=== PATIENT | male | born 1940 | race Caucasian/White ===

== ENCOUNTER 2017-12-01 07:55 | Inpatient (IN) | payer MEDICARE, BC ==
[~2017-12-01] VITALS: Ht 137.2 cm; Wt 48.0 kg
[2017-12-01] VITALS (10 sets, daily range): BP systolic 114–146; BP diastolic 56–85
[~2017-12-01 07:55] MED LIST: ASPI-1265 PO; BACL10TA PO; CARB-87 PO; FURO40TA4 PO; GABA-532 PO; LOSA25TA96 PO; METO25TA6 PO; MULT-38 PO; OSC500T PO; ROPI1TAB4 PO; TEMA15CA PO
[2017-12-01 08:17] LABS: BASOPHILS % (AUTO) 0.1 % (0-1); EOSINOPHILS # (AUTO) 0.1 X10'3 (0-0.9); EOSINOPHILS % (AUTO) 0.9 % (0-6); HEMATOCRIT 33.3 % (42.0-52.0); HEMOGLOBIN 11.3 g/dl (14.0-17.9); LYMPHOCYTES # (AUTO) 0.3 X10'3 (1.1-4.8); LYMPHOCYTES % (AUTO) 4.5 % (21-51); MONOCYTES # (AUTO) 0.5 X10'3 (0-0.9); MONOCYTES % (AUTO) 7.1 % (2-12); NEUTROPHILS # (AUTO) 6.3 X10'3 (1.8-7.7); NEUTROPHILS % (AUTO) 87.4 % (42-75); PLATELET COUNT 213 X10'3 (140-440); RED BLOOD COUNT 3.54 X10'6 (4.70-6.10); RED CELL DISTRIBUTION WIDTH 13.2 % (11.5-14.5); WHITE BLOOD COUNT 7.2 X10'3 (4.5-11.0)
[2017-12-01 08:32] LABS: INR 1.1 INR; PARTIAL THROMBOPLASTIN TIME 31 SECONDS (22-32); PROTHROMBIN TIME 10.9 SECONDS (9.0-12.0)
[2017-12-01 08:56] LABS: CLARITY,URINE Clear (Clear); COLOR,URINE Yellow (Yellow); GLUCOSE, URINE Negative (Neg); KETONES,URINE 40 mg/dl (Neg); LEUKOCYTE ESTERASE ,URINE Negative (Neg); NITRITES, URINE Negative (Neg); OCCULT BLOOD,URINE Negative (Neg); PH,URINE 5.5 (4.8-8.0); PROTEIN,URINE Negative (Neg)
[2017-12-01 09:00] LABS: UA COLLECTION TYPE CLN CATCH MIDSTREAM
[2017-12-01 09:02] LABS: ALANINE AMINOTRANSFERASE 25 U/L (12-78); ALBUMIN 3.5 G/DL (3.4-5.0); ALBUMIN/GLOBULIN RATIO 0.9 (1.1-1.5); ALKALINE PHOSPHATASE 82 IU/L (46-116); ANION GAP 11 (8-16); ASPARTATE AMINO TRANSFERASE 39 U/L (10-37); BILIRUBIN,TOTAL 0.5 MG/DL (0.1-1.0); BLOOD UREA NITROGEN 24 MG/DL (7-18); CHLORIDE 94 MMOL/L (99-107); GLUCOSE 105 MG/DL (70-104); MAGNESIUM 1.9 MG/DL (1.5-2.4); SODIUM 135 MMOL/L (135-145); TOTAL CARBON DIOXIDE 30.2 MMOL/L (24-32); TOTAL PROTEIN 7.2 G/DL (6.4-8.2); eGFR > 90 ML/MIN
[2017-12-01] MEDS ORDERED: heparin 10,000 units/1 ML INJ IV PRN ×2 (09:30→09:40)
[2017-12-01] MEDS ORDERED: heparin 10,000 units/1 ML INJ IV ONE ×2 (09:30→09:40)
[2017-12-01] MEDS ORDERED: acetaminophen 650mg rectal suppository RC PRN (09:40)
[2017-12-01] MEDS ORDERED: bisacodyl 10mg suppository rectal RC PRN (09:40)
[2017-12-01] MEDS ORDERED: ondansetron/PF 4mg/2ml inj IV PRN ×2 (09:40→17:20)
[2017-12-01] MEDS: atorvastatin 20mg tablet PO SCH (10:35)
[2017-12-01] MEDS: gabapentin 300mg capsule PO SCH ×2 (13:00→20:31)
[2017-12-01] MEDS: ROPINIRole 1mg tablet PO SCH ×3 (13:00→21:00)
[2017-12-01] MEDS ORDERED: baclofen 10mg tablet PO SCH (13:00)
[2017-12-01] MEDS ORDERED: LIDOcaine 1%/PF (10mg/ml) 5ml vial ONE (15:34)
[2017-12-01] MEDS ORDERED: iohexol 350 MG/ML 50ML vial IV ONE ×2 (15:34→15:59)
[2017-12-01] MEDS ORDERED: heparin 1,000 UNITS/NS 500ml 500 ML ONE (15:34)
[2017-12-01] MEDS ORDERED: iohexol 350MG/ML 100ml bottle IV ONE (15:34)
[2017-12-01] MEDS ORDERED: diphenhydrAMINE 50 mg/ml inj ONE (15:41)
[2017-12-01] MEDS ORDERED: midazolam 2 mg/2 ml injection ONE (15:41)
[2017-12-01] MEDS ORDERED: sodium chloride 0.45% 1,000 ML IV SCH ×2 (16:40→17:25)
[2017-12-01] MEDS ORDERED: proCHLORperazine 10 MG/2 ml inj IV PRN ×2 (17:20→17:30)
[2017-12-01] MEDS ORDERED: HYDROcodone/acetaminophen 5mg/325mg tablet PO PRN (17:20)
[2017-12-01] MEDS ORDERED: OXAZEpam 15mg capsule PO PRN ×2 (17:20→17:30)
[2017-12-01] MEDS ORDERED: HYDROcodone/acetaminophen 10/325mg tab PO PRN (17:20)
[2017-12-01] MEDS: lactobacillus rhamnosus 10,000 MMU CELLS/CAPSULE PO SCH (17:30)
[2017-12-01] MEDS ORDERED: acetaminophen 325mg tablet PO PRN (17:30)
[2017-12-01] MEDS ORDERED: cyclobenzaprine 10mg tablet PO PRN (17:30)
[2017-12-01] MEDS ORDERED: magnesium hydroxide 30ml (MOM) UD suspension PO PRN (17:30)
[2017-12-01] MEDS ORDERED: morphine 5 MG/ML injection IV PRN ×2 (17:40)
[2017-12-01] MEDS: docusate sod 100mg capsule PO SCH (20:31)
[2017-12-01] MEDS: furosemide 40mg tablet PO SCH (20:32)
[2017-12-01] MEDS: metoprolol tartrate 12.5mg (1/2 tablet) PO SCH (20:32)
[2017-12-01] MEDS: enoxaparin 30mg/0.3ml syringe SUBCUT SCH (20:33)
[2017-12-01] MEDS: ciprofloxacin lact 400MG/200ML 200 ML IV SCH (20:33)
[2017-12-01] MEDS ORDERED: furosemide 40mg/4ml inj ONE (23:00)
[2017-12-01] MEDS ORDERED: furosemide 40mg/4ml inj IV ONE (23:00)
[2017-12-01 23:25] LABS: BASOPHILS % (AUTO) 0.3 % (0-1); EOSINOPHILS % (AUTO) 0 % (0-6); HEMATOCRIT 36.7 % (42.0-52.0); HEMOGLOBIN 12.5 g/dl (14.0-17.9); LYMPHOCYTES # (AUTO) 1.5 X10'3 (1.1-4.8); LYMPHOCYTES % (AUTO) 19.1 % (21-51); MEAN CORPUSCULAR HEMOGLOBIN 32.1 PG (27.0-31.0); MEAN CORPUSCULAR HGB CONC 34.1 % (33.0-36.5); MEAN CORPUSCULAR VOLUME 94.2 FL (78-98); MEAN PLATELET VOLUME 8.4 FL (7.4-10.4); MONOCYTES # (AUTO) 0.5 X10'3 (0-0.9); MONOCYTES % (AUTO) 6.7 % (2-12); NEUTROPHILS # (AUTO) 5.7 X10'3 (1.8-7.7); NEUTROPHILS % (AUTO) 73.9 % (42-75); PLATELET COUNT 237 X10'3 (140-440); RED CELL DISTRIBUTION WIDTH 13.2 % (11.5-14.5); WHITE BLOOD COUNT 7.8 X10'3 (4.5-11.0)
[2017-12-01] MEDS ORDERED: temazepam 15mg capsule PO PRN (23:45)
[2017-12-02] VITALS (10 sets, daily range): BP systolic 77–122; BP diastolic 43–62
[2017-12-02 00:58] LABS: CLARITY,URINE CLEAR (Clear); COLOR,URINE YELLOW (Yellow); GLUCOSE, URINE NEGATIVE (Neg); KETONES,URINE NEGATIVE (Neg); LEUKOCYTE ESTERASE ,URINE NEGATIVE (Neg); NITRITES, URINE NEGATIVE (Neg); OCCULT BLOOD,URINE TRACE-INTACT (Neg); PH,URINE 5.5 (4.8-8.0); PROTEIN,URINE NEGATIVE (Neg); UROBILINOGEN,URINE 0.2 E.U/dL (0.2-1.0)
[2017-12-02 01:04] LABS: UA COLLECTION TYPE VOIDED
[2017-12-02 01:10] LABS: BACTERIA,URINE NONE SEEN /HPF (Neg); MUCUS STRANDS NONE SEEN /LPF (Neg); RBC,URINE 0-2 /HPF (0-2); SQUAMOUS EPITHELIAL CELL,UR NONE SEEN /LPF (FEW); WBC,URINE 0-4 /HPF (0-4)
[2017-12-02 04:57] LABS: BASOPHILS % (AUTO) 0 % (0-1); EOSINOPHILS # (AUTO) 0.1 X10'3 (0-0.9); EOSINOPHILS % (AUTO) 1.1 % (0-6); HEMATOCRIT 30.9 % (42.0-52.0); HEMOGLOBIN 10.6 g/dl (14.0-17.9); LYMPHOCYTES # (AUTO) 0.7 X10'3 (1.1-4.8); MEAN CORPUSCULAR HEMOGLOBIN 32.1 PG (27.0-31.0); MEAN CORPUSCULAR HGB CONC 34.4 % (33.0-36.5); MEAN CORPUSCULAR VOLUME 93.4 FL (78-98); MEAN PLATELET VOLUME 8.2 FL (7.4-10.4); MONOCYTES # (AUTO) 0.5 X10'3 (0-0.9); MONOCYTES % (AUTO) 7.8 % (2-12); NEUTROPHILS # (AUTO) 5.2 X10'3 (1.8-7.7); NEUTROPHILS % (AUTO) 80.1 % (42-75); PLATELET COUNT 193 X10'3 (140-440); RED BLOOD COUNT 3.31 X10'6 (4.70-6.10); RED CELL DISTRIBUTION WIDTH 13.1 % (11.5-14.5); WHITE BLOOD COUNT 6.5 X10'3 (4.5-11.0)
[2017-12-02 05:13] LABS: ALANINE AMINOTRANSFERASE 71 U/L (12-78); ALBUMIN 2.9 G/DL (3.4-5.0); ALBUMIN/GLOBULIN RATIO 0.9 (1.1-1.5); ALKALINE PHOSPHATASE 72 IU/L (46-116); ANION GAP 8 (8-16); ASPARTATE AMINO TRANSFERASE 169 U/L (10-37); BILIRUBIN,TOTAL 0.3 MG/DL (0.1-1.0); BLOOD UREA NITROGEN 27 MG/DL (7-18); CALCIUM 8.2 MG/DL (8.5-10.1); CHLORIDE 95 MMOL/L (99-107); CHOL/HDL RATIO 1.9 (0.00-4.99); CHOLESTEROL 125 MG/DL (0-200); GLUCOSE 102 MG/DL (70-104); HDL CHOLESTEROL 66 MG/DL (35-60); LDL CHOLESTEROL 56 MG/DL (50-100); POTASSIUM 4.5 MMOL/L (3.5-5.1); SODIUM 133 MMOL/L (135-145); TOTAL CARBON DIOXIDE 30.2 MMOL/L (24-32); TOTAL PROTEIN 6.3 G/DL (6.4-8.2); TRIGLYCERIDES 45 MG/DL (20-135); eGFR 72 ML/MIN
[2017-12-02 06:10] LABS: ABG BASE EXCESS -3.2 mmol/L (-2.0-3.0); ABG HCO3 21.9 mmol/L (22.0-26.0); ABG OXYGEN SATURATION 95.4 % (95-98); ABG PCO2 (T) 41.8 mmHg (35.0-48.0); ABG PH (T) 7.342 (7.350-7.450); ABG PO2 (T) 86.7 mmHg (83-108); FCOHb 0.3 % (0.5-1.5); FLOW 10 L/min; FMetHb 0.3 % (0.3-1.12); FO2Hb 94.8 % (94-100); PATIENT TEMPERATURE 38.3; RESPIRATORY RATE (OBSERVED) 18 b/min; TOTAL HEMOGLOBIN 12.7 G/dl (14.0-18.0)
[2017-12-02] MEDS: losartan 50mg tablet PO SCH (08:00)
[2017-12-02] MEDS: metoprolol tartrate 12.5mg (1/2 tablet) PO SCH ×2 (08:00→20:00)
[2017-12-02] MEDS: docusate sod 100mg capsule PO SCH ×2 (09:00→20:32)
[2017-12-02] MEDS: multivitamins, therapeutics tablet PO SCH (09:01)
[2017-12-02] MEDS: ciprofloxacin lact 400MG/200ML 200 ML IV SCH (09:01)
[2017-12-02] MEDS: calcium carbonate 500mg tablet PO SCH (09:01)
[2017-12-02] MEDS: atorvastatin 20mg tablet PO SCH (09:01)
[2017-12-02] MEDS: aspirin 81mg tab.chew PO SCH (09:02)
[2017-12-02] MEDS: furosemide 40mg tablet PO SCH (09:02)
[2017-12-02] MEDS: gabapentin 300mg capsule PO SCH ×3 (09:03→20:32)
[2017-12-02] MEDS: ROPINIRole 1mg tablet PO SCH ×4 (09:03→20:32)
[2017-12-02] MEDS: enoxaparin 30mg/0.3ml syringe SUBCUT SCH ×2 (09:05→20:35)
[2017-12-02] MEDS: lactobacillus rhamnosus 10,000 MMU CELLS/CAPSULE PO SCH ×2 (09:26→16:39)
[2017-12-02] MEDS ORDERED: CefTRIAXone/D5W-Rocephin 1gm 50 ML IV SCH (15:25)
[2017-12-02] MEDS ORDERED: morphine 5 MG/ML injection IV PRN (15:30)
[2017-12-02] MEDS ORDERED: cefTRIAXone 1g/NS 100ml IVPB 100 ML IV SCH (16:41)
[2017-12-02] MEDS: furosemide 20MG tablet PO SCH (20:32)
[2017-12-02] MEDS ORDERED: morphine 2 MG/ML inj. syringe IV PRN (20:50)
[2017-12-02] MEDS: cefTRIAXone 1g/NS 100ml IVPB 100 ML IV SCH (21:25)
[2017-12-03 02:00] VITALS: BP 105/54
[2017-12-03 03:53] LABS: BASOPHILS % (AUTO) 0.6 % (0-1); EOSINOPHILS % (AUTO) 0.4 % (0-6); HEMATOCRIT 27.4 % (42.0-52.0); HEMOGLOBIN 9.4 g/dl (14.0-17.9); LYMPHOCYTES # (AUTO) 1.2 X10'3 (1.1-4.8); LYMPHOCYTES % (AUTO) 36.4 % (21-51); MEAN CORPUSCULAR HGB CONC 34.1 % (33.0-36.5); MEAN CORPUSCULAR VOLUME 93.8 FL (78-98); MEAN PLATELET VOLUME 8.1 FL (7.4-10.4); MONOCYTES # (AUTO) 0.4 X10'3 (0-0.9); MONOCYTES % (AUTO) 12.4 % (2-12); NEUTROPHILS # (AUTO) 1.7 X10'3 (1.8-7.7); NEUTROPHILS % (AUTO) 50.2 % (42-75); PLATELET COUNT 153 X10'3 (140-440); RED BLOOD COUNT 2.92 X10'6 (4.70-6.10); RED CELL DISTRIBUTION WIDTH 12.9 % (11.5-14.5); WHITE BLOOD COUNT 3.4 X10'3 (4.5-11.0)
[2017-12-03 04:12] LABS: ALANINE AMINOTRANSFERASE 160 U/L (12-78); ALBUMIN 2.6 G/DL (3.4-5.0); ALBUMIN/GLOBULIN RATIO 0.8 (1.1-1.5); ALKALINE PHOSPHATASE 63 IU/L (46-116); ANION GAP 5 (8-16); ASPARTATE AMINO TRANSFERASE 222 U/L (10-37); BILIRUBIN,TOTAL 0.3 MG/DL (0.1-1.0); BLOOD UREA NITROGEN 28 MG/DL (7-18); CALCIUM 7.8 MG/DL (8.5-10.1); CHLORIDE 93 MMOL/L (99-107); GLUCOSE 94 MG/DL (70-104); POTASSIUM 3.5 MMOL/L (3.5-5.1); SODIUM 128 MMOL/L (135-145); TOTAL CARBON DIOXIDE 29.9 MMOL/L (24-32); TOTAL PROTEIN 5.7 G/DL (6.4-8.2); eGFR > 90 ML/MIN
[2017-12-03 04:17] LABS: TROPONIN I 10.25 NG/ML (0.0-0.05)
[2017-12-03 06:00] VITALS: BP 113/51
[2017-12-03] MEDS: losartan 50mg tablet PO SCH (08:00)
[2017-12-03] MEDS: metoprolol tartrate 12.5mg (1/2 tablet) PO SCH ×2 (08:00→10:29)
[2017-12-03] MEDS: aspirin 81mg tab.chew PO SCH (08:00)
[2017-12-03] MEDS: lactobacillus rhamnosus 10,000 MMU CELLS/CAPSULE PO SCH (08:28)
[2017-12-03] MEDS: cefTRIAXone 1g/NS 100ml IVPB 100 ML IV SCH (08:29)
[2017-12-03] MEDS: docusate sod 100mg capsule PO SCH (08:36)
[2017-12-03] MEDS: furosemide 20MG tablet PO SCH (08:41)
[2017-12-03] MEDS: atorvastatin 20mg tablet PO SCH (08:43)
[2017-12-03] MEDS: gabapentin 300mg capsule PO SCH ×2 (08:44→13:05)
[2017-12-03] MEDS: ROPINIRole 1mg tablet PO SCH ×2 (08:45→13:05)
[2017-12-03] MEDS: calcium carbonate 500mg tablet PO SCH (08:45)
[2017-12-03] MEDS: multivitamins, therapeutics tablet PO SCH (08:46)
[2017-12-03] MEDS: enoxaparin 30mg/0.3ml syringe SUBCUT SCH (08:48)
[2017-12-03] MEDS: lisinopril 2.5mg tablet PO SCH ×2 (08:48→09:16)
[2017-12-03] MEDS ORDERED: aspirin 81mg tab.chew PO SCH (08:51)
[2017-12-03] MEDS ORDERED: losartan 50mg tablet PO SCH (08:51)
[2017-12-03 10:30] VITALS: BP 120/59
[2017-12-03 11:00] VITALS: BP 109/55
[2017-12-03] MEDS ORDERED: carbidoba-levodopa 25-100mg tablet PO SCH (19:00)
[2017-12-03] MEDS ORDERED: lisinopril 2.5mg tablet PO SCH (21:00)
[2017-12-04] MEDS ORDERED: carbidoba-levodopa 25-100mg tablet PO SCH (08:00)
== END 2017-12-03 13:50 | disposition short-term general hospital (02) | DRG 280 ==
LOC: ER 07:56 → ED HOLD 09:40 → EDBEDREQ 15:09 → PCU 3S 16:38
PROVIDERS: ADMIT Family Medicine; ATTEND Internal Medicine
PROC: B2111ZZ Fluoroscopy of Multiple Coronary Arteries using Low Osmolar Contrast (ICD-10-PCS; principal; 2017-12-01)
PROC: B3101ZZ Fluoroscopy of Thoracic Aorta using Low Osmolar Contrast (ICD-10-PCS; 2017-12-01)
DX: I21.4 Non-ST elevation (NSTEMI) myocardial infarction (principal); I50.23 Acute on chronic systolic (congestive) heart failure; J18.9 Pneumonia, unspecified organism; I42.9 Cardiomyopathy, unspecified; G20 Parkinson's disease; I65.29 Occlusion and stenosis of unspecified carotid artery; Q78.0 Osteogenesis imperfecta; I71.2 Thoracic aortic aneurysm, without rupture; I11.0 Hypertensive heart disease with heart failure; E78.5 Hyperlipidemia, unspecified; R29.6 Repeated falls; G89.29 Other chronic pain; H54.7 Unspecified visual loss; I08.0 Rheumatic disorders of both mitral and aortic valves; I25.10 Atherosclerotic heart disease of native coronary artery without angina pectoris; Z79.899 Other long term (current) drug therapy; Z79.82 Long term (current) use of aspirin; Z88.8 Allergy status to other drugs, medicaments and biological substances
CPT/HCPCS: 36415; 36600; 71045; 80053; 80061; 81001; 81003; 82803; 83605; 83735; 83880; 84145; 84484; 85018; 85025; 85347; 85610; 85730; 87040; 87070; 93005; 93306; 93454; 93567; 97116; 97161; 97530; 99152; 99153; 99285; A4620; A6213; A6253; A6257; C1769; J0696; J0744; J1200; J1644; J1650; J1940; J2001; J2250; J2270; J2405; J7030; Q9967

== ENCOUNTER 2018-01-06 11:19 | Emergency (ER) | payer MEDICARE, BC ==
[~2018-01-06] VITALS: Ht 142.2 cm; Wt 50.0 kg
[~2018-01-06 11:19] MED LIST changes: -BACL10TA PO
[2018-01-06] MEDS ORDERED: normal saline 1000ML IV soln IVB ONE (13:20)
[2018-01-06] MEDS ORDERED: ondansetron/PF 4mg/2ml inj IV ONE (13:20)
[2018-01-06 13:47] LABS: BASOPHILS % (AUTO) 0.2 % (0-1); EOSINOPHILS # (AUTO) 0.1 X10'3 (0-0.9); EOSINOPHILS % (AUTO) 1.3 % (0-6); HEMATOCRIT 31.8 % (42.0-52.0); HEMOGLOBIN 10.8 g/dl (14.0-17.9); LYMPHOCYTES # (AUTO) 0.8 X10'3 (1.1-4.8); LYMPHOCYTES % (AUTO) 18.6 % (21-51); MEAN CORPUSCULAR HEMOGLOBIN 32.6 PG (27.0-31.0); MEAN CORPUSCULAR VOLUME 96.1 FL (78-98); MEAN PLATELET VOLUME 8.2 FL (7.4-10.4); MONOCYTES # (AUTO) 0.4 X10'3 (0-0.9); MONOCYTES % (AUTO) 8.3 % (2-12); NEUTROPHILS # (AUTO) 3.1 X10'3 (1.8-7.7); NEUTROPHILS % (AUTO) 71.6 % (42-75); PLATELET COUNT 204 X10'3 (140-440); RED BLOOD COUNT 3.31 X10'6 (4.70-6.10); RED CELL DISTRIBUTION WIDTH 18.7 % (11.5-14.5); WHITE BLOOD COUNT 4.3 X10'3 (4.5-11.0)
[2018-01-06 14:12] LABS: ALANINE AMINOTRANSFERASE 29 U/L (12-78); ALBUMIN 3.6 G/DL (3.4-5.0); ALKALINE PHOSPHATASE 83 IU/L (46-116); ANION GAP 11 (8-16); ASPARTATE AMINO TRANSFERASE 27 U/L (10-37); BILIRUBIN,TOTAL 0.8 MG/DL (0.1-1.0); BLOOD UREA NITROGEN 18 MG/DL (7-18); BUN/CREATININE RATIO 26.1 (5.4-32.0); CALCIUM 8.8 MG/DL (8.5-10.1); CHLORIDE 97 MMOL/L (99-107); CREATININE 0.69 MG/DL (0.60-1.10); GLUCOSE 81 MG/DL (70-104); POTASSIUM 4.1 MMOL/L (3.5-5.1); SODIUM 135 MMOL/L (135-145); TOTAL CARBON DIOXIDE 27.5 MMOL/L (24-32); TOTAL PROTEIN 7.3 G/DL (6.4-8.2); eGFR > 90 ML/MIN
[2018-01-06] MEDS ORDERED: ONDA4TAB12 PO (15:25)
[2018-01-06] MEDS ORDERED: TAM75C PO (15:25)
[2018-01-06 15:41] VITALS: BP 159/77
== END 2018-01-06 15:43 | disposition home or self-care (01) ==
LOC: ER 11:19
DX: J11.1 Influenza due to unidentified influenza virus with other respiratory manifestations (principal); G20 Parkinson's disease; I25.10 Atherosclerotic heart disease of native coronary artery without angina pectoris; I11.0 Hypertensive heart disease with heart failure; I50.9 Heart failure, unspecified; I25.2 Old myocardial infarction; G89.29 Other chronic pain; Z95.5 Presence of coronary angioplasty implant and graft; Z79.82 Long term (current) use of aspirin; Z79.899 Other long term (current) drug therapy
CPT/HCPCS: 36415; 71045; 80053; 83735; 83880; 84484; 85025; 87502; 87503; 96361; 96374; 99285; A6255; J2405; J7030

== ENCOUNTER 2018-10-28 16:22 | Emergency (ER) | payer MEDICARE, OTHER ==
[~2018-10-28] VITALS: Ht 142.2 cm; Wt 47.7 kg
[~2018-10-28 16:22] MED LIST changes: +ONDA4TAB12 PO
[2018-10-28] MEDS ORDERED: morphine 4 MG/ML inj SYRINge IV ONE (17:00)
[2018-10-28] MEDS ORDERED: morphine 10mg/ml inj. IV ONE (17:00)
[2018-10-28 17:30] LABS: BASOPHILS % (AUTO) 0.7 % (0-1); EOSINOPHILS # (AUTO) 0.1 X10'3 (0-0.9); EOSINOPHILS % (AUTO) 2.3 % (0-6); HEMATOCRIT 34.6 % (42.0-52.0); HEMOGLOBIN 11.3 g/dl (14.0-17.9); LYMPHOCYTES # (AUTO) 1.3 X10'3 (1.1-4.8); LYMPHOCYTES % (AUTO) 27.4 % (21-51); MEAN CORPUSCULAR HEMOGLOBIN 32.2 PG (27.0-31.0); MEAN CORPUSCULAR HGB CONC 32.8 % (33.0-36.5); MEAN CORPUSCULAR VOLUME 98.2 FL (78-98); MEAN PLATELET VOLUME 8.8 FL (7.4-10.4); MONOCYTES # (AUTO) 0.4 X10'3 (0-0.9); MONOCYTES % (AUTO) 9.3 % (2-12); NEUTROPHILS % (AUTO) 60.3 % (42-75); PLATELET COUNT 197 X10'3 (140-440); RED BLOOD COUNT 3.53 X10'6 (4.70-6.10); RED CELL DISTRIBUTION WIDTH 12.8 % (11.5-14.5); WHITE BLOOD COUNT 4.8 X10'3 (4.5-11.0)
[2018-10-28 17:40] LABS: INR 1.1 INR; PROTHROMBIN TIME 11.3 SECONDS (9.0-12.0)
[2018-10-28 17:49] LABS: ALANINE AMINOTRANSFERASE 13 U/L (12-78); ALBUMIN 3.5 G/DL (3.4-5.0); ALBUMIN/GLOBULIN RATIO 0.9 (1.1-1.5); ALKALINE PHOSPHATASE 100 IU/L (46-116); ANION GAP 6 (8-16); ASPARTATE AMINO TRANSFERASE 19 U/L (10-37); BILIRUBIN,TOTAL 0.5 MG/DL (0.1-1.0); BLOOD UREA NITROGEN 31 MG/DL (7-18); BUN/CREATININE RATIO 35.2 (5.4-32.0); CALCIUM 8.5 MG/DL (8.5-10.1); CHLORIDE 102 MMOL/L (99-107); CREATININE 0.88 MG/DL (0.60-1.10); GLUCOSE 110 MG/DL (70-104); SODIUM 139 MMOL/L (135-145); TOTAL CARBON DIOXIDE 30.8 MMOL/L (24-32); TOTAL PROTEIN 7.2 G/DL (6.4-8.2); eGFR 84 ML/MIN
--- NOTE | 2018-10-28 18:41 | NUR ---
Patient is A&O x4, MURDOCK and is resting comfortably on gurney after Morphine was given. I will continue to monitor.
[2018-10-28 19:09] VITALS: BP 151/71
== END 2018-10-28 19:13 | disposition home or self-care (01) ==
LOC: ER 16:23
DX: S16.1XXA Strain of muscle, fascia and tendon at neck level, initial encounter (principal); R07.89 Other chest pain; Q78.0 Osteogenesis imperfecta; I25.10 Atherosclerotic heart disease of native coronary artery without angina pectoris; I11.0 Hypertensive heart disease with heart failure; I50.9 Heart failure, unspecified; G89.29 Other chronic pain; Z98.61 Coronary angioplasty status; Z98.890 Other specified postprocedural states; Z88.8 Allergy status to other drugs, medicaments and biological substances; Z79.82 Long term (current) use of aspirin; Z79.899 Other long term (current) drug therapy; V89.2XXA Person injured in unspecified motor-vehicle accident, traffic, initial encounter; Y93.89 Activity, other specified; Y92.488 Other paved roadways as the place of occurrence of the external cause; Y99.8 Other external cause status
CPT/HCPCS: 36415; 71045; 71250; 72125; 80053; 84484; 85025; 85610; 93005; 96374; 99284; J2270

== ENCOUNTER 2019-01-01 13:20 | Emergency (ER) | payer MEDICARE, OTHER ==
[~2019-01-01] VITALS: Ht 139.7 cm; Wt 45.5 kg
[2019-01-01] MEDS ORDERED: aspirin 81mg tab.chew PO ONE (13:35)
--- NOTE | 2019-01-01 13:53 | NUR ---
PT TOOK 4X81MG OF BABY ASPIRIN AT 12:50
[2019-01-01 13:59] LABS: BASOPHILS % (AUTO) 0.7 % (0-1); EOSINOPHILS # (AUTO) 0.1 X10'3 (0-0.9); EOSINOPHILS % (AUTO) 1.8 % (0-6); HEMATOCRIT 35.4 % (42.0-52.0); HEMOGLOBIN 11.9 g/dl (14.0-17.9); LYMPHOCYTES # (AUTO) 1.3 X10'3 (1.1-4.8); LYMPHOCYTES % (AUTO) 31.6 % (21-51); MEAN CORPUSCULAR HEMOGLOBIN 32.4 PG (27.0-31.0); MEAN CORPUSCULAR HGB CONC 33.5 g/dL (33.0-36.5); MEAN CORPUSCULAR VOLUME 96.7 FL (78-98); MEAN PLATELET VOLUME 8.4 FL (7.4-10.4); MONOCYTES # (AUTO) 0.3 X10'3 (0-0.9); MONOCYTES % (AUTO) 7.2 % (2-12); NEUTROPHILS # (AUTO) 2.3 X10'3 (1.8-7.7); NEUTROPHILS % (AUTO) 58.7 % (42-75); PLATELET COUNT 186 X10'3 (140-440); RED BLOOD COUNT 3.66 X10'6 (4.70-6.10); RED CELL DISTRIBUTION WIDTH 13.4 % (11.5-14.5)
[2019-01-01 14:03] LABS: INR 1.1 INR; PROTHROMBIN TIME 11.2 SECONDS (9.0-12.0)
[2019-01-01 14:06] LABS: ALANINE AMINOTRANSFERASE 12 U/L (12-78); ALBUMIN 3.7 G/DL (3.4-5.0); ALKALINE PHOSPHATASE 88 IU/L (46-116); ANION GAP 6 (8-16); ASPARTATE AMINO TRANSFERASE 24 U/L (10-37); BILIRUBIN,TOTAL 0.6 MG/DL (0.1-1.0); BLOOD UREA NITROGEN 24 MG/DL (7-18); BUN/CREATININE RATIO 28.6 (5.4-32.0); CALCIUM 8.6 MG/DL (8.5-10.1); CHLORIDE 100 MMOL/L (99-107); CREATININE 0.84 MG/DL (0.60-1.10); GLUCOSE 161 MG/DL (70-104); SODIUM 136 MMOL/L (135-145); TOTAL CARBON DIOXIDE 29.8 MMOL/L (24-32); TOTAL PROTEIN 7.3 G/DL (6.4-8.2); eGFR 88 ML/MIN
[2019-01-01] MEDS ORDERED: normal saline 1000ML IV soln IVB ONE (14:15)
[2019-01-01 14:34] LABS: CLARITY,URINE CLEAR (Clear); COLOR,URINE YELLOW (Yellow); GLUCOSE, URINE NEGATIVE (Neg); KETONES,URINE NEGATIVE (Neg); LEUKOCYTE ESTERASE ,URINE NEGATIVE (Neg); NITRITES, URINE NEGATIVE (Neg); OCCULT BLOOD,URINE NEGATIVE (Neg); PROTEIN,URINE NEGATIVE (Neg); UROBILINOGEN,URINE 0.2 E.U/dL (0.2-1.0)
[2019-01-01 14:35] LABS: UA COLLECTION TYPE URINAL
[2019-01-01 15:24] VITALS: BP 123/64
== END 2019-01-01 15:25 | disposition home or self-care (01) ==
LOC: ER 13:20
DX: E86.0 Dehydration (principal); I50.9 Heart failure, unspecified; I25.10 Atherosclerotic heart disease of native coronary artery without angina pectoris; I11.0 Hypertensive heart disease with heart failure; I25.2 Old myocardial infarction; G89.29 Other chronic pain; Z98.61 Coronary angioplasty status; Z98.890 Other specified postprocedural states; Z88.8 Allergy status to other drugs, medicaments and biological substances; Z79.82 Long term (current) use of aspirin; Z79.899 Other long term (current) drug therapy
CPT/HCPCS: 36415; 71045; 80053; 81003; 83880; 84484; 85025; 85610; 93005; 96360; 99284; J7030

== ENCOUNTER 2019-01-25 20:52 | Emergency (ER) | payer MEDICARE, OTHER ==
[~2019-01-25] VITALS: Ht 142.2 cm; Wt 45.5 kg
[2019-01-25 22:09] LABS: EOSINOPHILS # (AUTO) 0.1 X10'3 (0-0.9); EOSINOPHILS % (AUTO) 1.6 % (0-6); HEMATOCRIT 35.8 % (42.0-52.0); HEMOGLOBIN 12.1 g/dl (14.0-17.9); LYMPHOCYTES # (AUTO) 1.4 X10'3 (1.1-4.8); LYMPHOCYTES % (AUTO) 40.4 % (21-51); MEAN CORPUSCULAR HEMOGLOBIN 32.6 PG (27.0-31.0); MEAN CORPUSCULAR HGB CONC 33.8 g/dL (33.0-36.5); MEAN CORPUSCULAR VOLUME 96.6 FL (78-98); MEAN PLATELET VOLUME 8.6 FL (7.4-10.4); MONOCYTES # (AUTO) 0.4 X10'3 (0-0.9); MONOCYTES % (AUTO) 10.7 % (2-12); NEUTROPHILS # (AUTO) 1.6 X10'3 (1.8-7.7); NEUTROPHILS % (AUTO) 46.3 % (42-75); PLATELET COUNT 180 X10'3 (140-440); RED BLOOD COUNT 3.71 X10'6 (4.70-6.10); RED CELL DISTRIBUTION WIDTH 13.6 % (11.5-14.5); WHITE BLOOD COUNT 3.5 X10'3 (4.5-11.0)
[2019-01-25 22:20] LABS: INR 1.1 INR; PROTHROMBIN TIME 11.4 SECONDS (9.0-12.0)
[2019-01-25 22:21] LABS: PARTIAL THROMBOPLASTIN TIME 29 SECONDS (22-32)
[2019-01-25 22:25] LABS: ALANINE AMINOTRANSFERASE 6 U/L (12-78); ALBUMIN 3.8 G/DL (3.4-5.0); ALBUMIN/GLOBULIN RATIO 1.1 (1.1-1.5); ALKALINE PHOSPHATASE 83 IU/L (46-116); ANION GAP 6 (8-16); ASPARTATE AMINO TRANSFERASE 21 U/L (10-37); BILIRUBIN,TOTAL 0.6 MG/DL (0.1-1.0); BLOOD UREA NITROGEN 31 MG/DL (7-18); CALCIUM 9.8 MG/DL (8.5-10.1); CHLORIDE 101 MMOL/L (99-107); CREATININE 0.97 MG/DL (0.60-1.10); GLUCOSE 115 MG/DL (70-104); POTASSIUM 4.1 MMOL/L (3.5-5.1); SODIUM 137 MMOL/L (135-145); TOTAL CARBON DIOXIDE 30.5 MMOL/L (24-32); TOTAL PROTEIN 7.3 G/DL (6.4-8.2); eGFR 75 ML/MIN
[2019-01-26] MEDS ORDERED: losartan 50mg tablet PO STA (00:01)
[2019-01-26] MEDS ORDERED: atorvastatin 20mg tablet PO STA (00:01)
[2019-01-26] MEDS ORDERED: carVEDilol 3.125mg tablet PO STA (00:01)
[2019-01-26 00:33] LABS: CLARITY,URINE CLEAR (Clear); COLOR,URINE YELLOW (Yellow); GLUCOSE, URINE NEGATIVE (Neg); KETONES,URINE NEGATIVE (Neg); LEUKOCYTE ESTERASE ,URINE NEGATIVE (Neg); NITRITES, URINE NEGATIVE (Neg); OCCULT BLOOD,URINE TRACE-INTACT (Neg); PH,URINE 5.5 (4.8-8.0); PROTEIN,URINE NEGATIVE (Neg); UROBILINOGEN,URINE 0.2 E.U/dL (0.2-1.0)
[2019-01-26 00:38] LABS: UA COLLECTION TYPE URINAL
[2019-01-26 00:41] LABS: MUCUS STRANDS NONE SEEN /LPF (Neg); RBC,URINE 0-2 /HPF (0-2); SQUAMOUS EPITHELIAL CELL,UR FEW /LPF (FEW)
[2019-01-26 00:45] LABS: BACTERIA,URINE 2+ /HPF (Neg); WBC,URINE 0-4 /HPF (0-4)
[2019-01-26 00:46] VITALS: BP 158/75
== END 2019-01-26 01:01 | disposition home or self-care (01) ==
LOC: ER 20:52
DX: I11.0 Hypertensive heart disease with heart failure (principal); I50.9 Heart failure, unspecified; I25.10 Atherosclerotic heart disease of native coronary artery without angina pectoris; I25.2 Old myocardial infarction; G89.29 Other chronic pain; Z95.1 Presence of aortocoronary bypass graft; Z88.8 Allergy status to other drugs, medicaments and biological substances; Z79.82 Long term (current) use of aspirin
CPT/HCPCS: 36415; 71045; 80053; 81001; 83880; 84484; 85025; 85610; 85730; 93005; 99284

== ENCOUNTER 2019-05-16 15:00 | Emergency (ER) | payer MEDICARE, OTHER ==
[~2019-05-16] VITALS: Ht 142.2 cm; Wt 44.0 kg
[2019-05-16] MEDS ORDERED: mineral oil 133ml enema RC PRN (17:15)
--- NOTE | 2019-05-16 18:23 | NUR ---
PT IS CONFUSED ADN PERSISTANTLY TRYING TO LEAVE, PT BECOMING AGRESSIVE TOWARDS STAFF, PT CLIMBED TO END OF BED, SECURITY CALLED TO BEDSIDE, REDIRECTED PT AND INFORMED HE WAS BEING HELD FOR ADMIT 5150 MANY TIMES BUT PT WAS NOT ABLE TO RETAIN INFORMATION ABOUT STAYING, PT NOT MAKING SENSE STATING HE WAS TO MEET SOMEONE FOR [facility]NER T[facility], I ASKED FOR PERSON NAME AND NUMBER BUT PT RAMBLED ABOUT SOMETHING ELSE AND WAS UNABLE TO GIVE ME PERSONS NAME OR NUMBER, MEDICATED PT WITH ATIVAN AND BENADRYL HOLDING HALDOL AT THIS TIME, PRIMARY NURSE PAULY INFORMED, GREEN SCRUBS PLACED AT BEDSIDE WILL ALLOW PT TO CALM AND THEN ATTEMPT TO CHANGE PT INTO SRUBS
[2019-05-16 19:12] VITALS: BP 164/84
== END 2019-05-16 19:14 | disposition home or self-care (01) ==
LOC: ER 15:01
DX: K62.3 Rectal prolapse (principal); R10.9 Unspecified abdominal pain; G20 Parkinson's disease; I25.10 Atherosclerotic heart disease of native coronary artery without angina pectoris; I50.9 Heart failure, unspecified; I11.0 Hypertensive heart disease with heart failure; I25.2 Old myocardial infarction; G89.29 Other chronic pain; Z88.8 Allergy status to other drugs, medicaments and biological substances; Z79.82 Long term (current) use of aspirin; Z79.899 Other long term (current) drug therapy; Z98.890 Other specified postprocedural states; Z98.61 Coronary angioplasty status
CPT/HCPCS: 99284

== ENCOUNTER 2019-08-16 00:38 | Inpatient (IN) | payer MEDICARE, OTHER ==
[~2019-08-16] VITALS: Ht 137.2 cm; Wt 43.2 kg
[2019-08-16] VITALS (17 sets, daily range): BP systolic 89–168; BP diastolic 42–77
--- NOTE | 2019-08-16 00:44 | NUR ---
placed on bipap, with immediate improvement in o2 saturation, 98% on 12L.
[2019-08-16] MEDS ORDERED: nitroGLYCERIN-Tridil 50MG/D5W 250 ML IV PRN (00:45)
[2019-08-16] MEDS ORDERED: furosemide 40mg/4ml inj IV ONE (00:45)
[2019-08-16 00:56] LABS: ABG BASE EXCESS -0.9 mmol/L (-2.0-3.0); ABG HCO3 24.5 mmol/L (22.0-26.0); ABG PCO2 (T) 41.9 mmHg (35.0-45.0); ABG PH (T) 7.381 (7.350-7.450); ABG PO2 (T) 181.9 mmHg (83-108); FCOHb 0.9 % (0.5-1.5); FMetHb 0.3 % (0.3-1.12); FO2Hb 97.8 % (94-100); MINUTE VOLUME 13 L/min; PATIENT TEMPERATURE 36.3; RESPIRATORY RATE 14 b/min; RESPIRATORY RATE (OBSERVED) 24 b/min; TOTAL HEMOGLOBIN 13.5 G/dl (14.0-17.9)
[2019-08-16 01:01] LABS: BASOPHILS # (AUTO) 0.1 X10'3 (0-0.2); EOSINOPHILS # (AUTO) 0.2 X10'3 (0-0.9); EOSINOPHILS % (AUTO) 2.7 % (0-6); HEMATOCRIT 39.4 % (42.0-52.0); HEMOGLOBIN 13.4 g/dl (14.0-17.9); LYMPHOCYTES # (AUTO) 3.4 X10'3 (1.1-4.8); LYMPHOCYTES % (AUTO) 46.3 % (21-51); MEAN CORPUSCULAR HEMOGLOBIN 33.4 PG (27.0-31.0); MEAN CORPUSCULAR HGB CONC 34.1 g/dL (33.0-36.5); MEAN CORPUSCULAR VOLUME 97.8 FL (78-98); MONOCYTES # (AUTO) 0.5 X10'3 (0-0.9); MONOCYTES % (AUTO) 7.1 % (2-12); NEUTROPHILS # (AUTO) 3.2 X10'3 (1.8-7.7); NEUTROPHILS % (AUTO) 42.9 % (42-75); PLATELET COUNT 198 X10'3 (140-440); RED BLOOD COUNT 4.03 X10'6 (4.70-6.10); RED CELL DISTRIBUTION WIDTH 12.9 % (11.5-14.5); WHITE BLOOD COUNT 7.4 X10'3 (4.5-11.0)
[2019-08-16 01:11] LABS: PARTIAL THROMBOPLASTIN TIME 28 SECONDS (22-32)
[2019-08-16 01:16] LABS: ALANINE AMINOTRANSFERASE 11 U/L (12-78); ALBUMIN 3.8 G/DL (3.4-5.0); ALBUMIN/GLOBULIN RATIO 0.9 (1.1-1.5); ALKALINE PHOSPHATASE 98 IU/L (46-116); ANION GAP 5 (8-16); ASPARTATE AMINO TRANSFERASE 23 U/L (10-37); BILIRUBIN,TOTAL 0.8 MG/DL (0.1-1.0); BLOOD UREA NITROGEN 28 MG/DL (7-18); BUN/CREATININE RATIO 33.7 (5.4-32.0); CALCIUM 9.6 MG/DL (8.5-10.1); CHLORIDE 101 MMOL/L (99-107); CREATININE 0.83 MG/DL (0.60-1.10); GLUCOSE 132 MG/DL (70-104); POTASSIUM 4.5 MMOL/L (3.5-5.1); SODIUM 136 MMOL/L (135-145); TOTAL PROTEIN 7.9 G/DL (6.4-8.2); eGFR 89 ML/MIN
[2019-08-16] MEDS ORDERED: normal saline 1000ML IV soln IVB ONE (02:00)
[2019-08-16] MEDS ORDERED: magnesium Cl slow-release 64mg tablet PO PRN (02:30)
[2019-08-16] MEDS ORDERED: magnesium hydroxide 30ml (MOM) UD suspension PO PRN (02:30)
[2019-08-16] MEDS ORDERED: acetaminophen 325mg tablet PO PRN ×2 (02:30)
[2019-08-16] MEDS ORDERED: ondansetron/PF 4mg/2ml inj IV PRN (02:30)
[2019-08-16] MEDS ORDERED: acetaminophen 650mg rectal suppository RC PRN (02:30)
[2019-08-16] MEDS ORDERED: ipratropium/albuterol 3ml nebule NEB PRN (02:30)
[2019-08-16] MEDS ORDERED: potassium Cl 20 mEq SR tablet PO PRN ×2 (02:30)
[2019-08-16] MEDS ORDERED: cognitex (02:46)
[2019-08-16] MEDS ORDERED: POTA10TA10 PO (02:46)
[2019-08-16] MEDS ORDERED: FURO-150 PO (02:46)
[2019-08-16] MEDS ORDERED: CHOL2000 PO (02:46)
[2019-08-16] MEDS ORDERED: VITA100D6 PO (02:46)
[2019-08-16] MEDS ORDERED: ESZO3TAB66 PO (02:46)
[2019-08-16] MEDS ORDERED: ASCO500C15 PO (02:46)
[2019-08-16] MEDS ORDERED: VITA100T3 (02:46)
[2019-08-16] MEDS ORDERED: CARB-90 PO (02:46)
[2019-08-16] MEDS ORDERED: MIRT15TA PO (02:46)
[2019-08-16] MEDS ORDERED: GLUC-131 PO (02:46)
[2019-08-16] MEDS ORDERED: vitamin b (02:46)
[2019-08-16] MEDS ORDERED: ATOR40TA7 PO (02:46)
[2019-08-16] MEDS ORDERED: MAGN400C PO (02:46)
[2019-08-16] MEDS ORDERED: CARV3.12 PO (02:46)
[2019-08-16 03:31] LABS: MAGNESIUM 2.2 MG/DL (1.5-2.4); PHOSPHORUS 3.5 MG/DL (2.3-4.5)
[2019-08-16] MEDS ORDERED: acetaminophen 325mg tablet PO ONE (04:00)
--- NOTE | 2019-08-16 04:20 | NUR ---
2-person pericare provided.
--- NOTE | 2019-08-16 04:40 | NUR ---
received from ER per navi , alert and oriented , denies pain , on 4l/nc , O2 sats at at 96-98% , no SOB noted , daughter AT BEDSIDE , ORIENTED TO ROOM , VITALS STABLE .
[2019-08-16] MEDS ORDERED: pneumococcal 23-VAL P-sac vacc 25 mcg/0.5ml vial IMVAC ONE (05:25)
--- NOTE | 2019-08-16 06:30 | NUR ---
Patient in room CICU 2009. I have received report from Maryam and had the opportunity to ask questions and assume patient care.
[2019-08-16] MEDS: K and/or MAG REPLACEMENT MC SCH (06:45)
--- NOTE | 2019-08-16 07:49 | NUR ---
I have reviewed and agree with all medications administered and interventions performed by [facility] Student Jacquelinbailey Mendieta Addendum: 08/16/19 at 0750 by Julieta Colunga RT Amended: Links added.
[2019-08-16] MEDS: ascorbic acid 500mg tablet PO SCH (07:59)
[2019-08-16] MEDS: multivitamins, therapeutics tablet PO SCH (07:59)
[2019-08-16] MEDS: carVEDilol 3.125mg tablet PO SCH ×2 (07:59→20:39)
[2019-08-16] MEDS: calcium carbonate 500mg tablet PO SCH (07:59)
[2019-08-16] MEDS: docusate sod 100mg capsule PO SCH ×2 (08:00→20:40)
[2019-08-16] MEDS: gabapentin 300mg capsule PO SCH ×3 (08:00→20:39)
[2019-08-16] MEDS: carbidoba-levodopa 25-100mg tablet PO SCH ×3 (08:00→17:02)
[2019-08-16] MEDS: aspirin 81mg tab.chew PO SCH (08:00)
[2019-08-16] MEDS: pantoprazole 40mg Tablet.DR PO SCH (08:00)
[2019-08-16] MEDS: furosemide 40mg/4ml inj IV SCH ×2 (08:01→20:42)
[2019-08-16] MEDS: enoxaparin 40mg/0.4ml syringe SUBCUT SCH (08:01)
[2019-08-16] MEDS: ROPINIRole 1mg tablet PO SCH ×4 (09:25→20:37)
[2019-08-16] MEDS ORDERED: levoFLOXACIN 500mg tablet PO ONE (11:35)
[2019-08-16] MEDS ORDERED: aminophylline 250mg/10ml inj. IV PRN (11:40)
[2019-08-16] MEDS ORDERED: regadenoson 0.4mg/5ml syringe IV PRN (11:40)
[2019-08-16] MEDS ORDERED: metoprolol tartrate 1mg/ml inj IV PRN (11:40)
--- NOTE | 2019-08-16 15:11 | NUR ---
Pt with hx Parkinson's disease. Per RN pt with no tremors resulting in difficulty feeding himself. Pt currently on heart healthy diet documented with 75-100% meeting nutrient needs. Will continue to follow per dx protocol. Addendum: 08/16/19 at [address] Amended: Links added.
--- NOTE | 2019-08-16 18:29 | NUR ---
Problems reprioritized. Patient report given, questions answered & plan of care reviewed with kemar.
--- NOTE | 2019-08-16 18:46 | NUR ---
Patient in room [facility] 2008. I have received report from Anais BAUGH and had the opportunity to ask questions and assume patient care. Addendum: 08/16/19 at 1847 by Stephany Murcia RN Pt sitting up in chair eating dinner.
--- NOTE | 2019-08-16 19:35 | NUR ---
Problems reprioritized. Patient report given, questions answered & plan of care reviewed with Josefina BAUGH. Pt transferred with all his personal beloningings. Addendum: 08/16/19 at 1937 by Stephany Murcia RN [place] [id number]
--- NOTE | 2019-08-16 20:03 | NUR ---
Patient in room PCU 3024 arrived at 1930. I have received report from LUPIS Blank from ICU and had the opportunity to ask questions and assume patient care. Patient denies chest pain, nausea, burning on urination, and states to have light pain in the right hand with feelings of numbness, pin and needles which is chronic. Patient has reddness on coccyx area and surrounding umbilicus from extra skin folded over.
[2019-08-16] MEDS: vitamin D (cholecalciferol) 1,000 unit tablet PO SCH (20:36)
[2019-08-16] MEDS: losartan 50mg tablet PO SCH (20:39)
[2019-08-16] MEDS: atorvastatin 20mg tablet PO SCH (20:39)
[2019-08-16] MEDS: mirtazapine 15mg tablet PO SCH (20:41)
[2019-08-16] MEDS: magnesium oxide 400mg tablet PO SCH (20:42)
[2019-08-16] MEDS ORDERED: [UNRECOGNIZED DRUG - OTHER] PO SCH (21:00)
[2019-08-16] MEDS: zolpidem 5mg tablet PO SCH (21:50)
[2019-08-16] MEDS: carbidopa/levodopa 50/200mg CR tablet PO SCH (21:50)
[2019-08-17] VITALS (14 sets, daily range): BP systolic 101–126; BP diastolic 46–59
--- NOTE | 2019-08-17 05:49 | NUR ---
[place] Medication Administration: For this medication-pass time frame, all medication were reviewed, dispensed, administered and documented per hospital policy by Elke BAUGH. [place] documentation: I have reviewed all interventions, assessments performed and documented by Elke BAUGH.
[2019-08-17 06:08] LABS: BASOPHILS % (AUTO) 0.7 % (0-1); EOSINOPHILS # (AUTO) 0.1 X10'3 (0-0.9); EOSINOPHILS % (AUTO) 1.8 % (0-6); HEMATOCRIT 32.9 % (42.0-52.0); HEMOGLOBIN 11.5 g/dl (14.0-17.9); LYMPHOCYTES # (AUTO) 1.4 X10'3 (1.1-4.8); LYMPHOCYTES % (AUTO) 26.9 % (21-51); MEAN CORPUSCULAR HGB CONC 34.8 g/dL (33.0-36.5); MEAN CORPUSCULAR VOLUME 97.8 FL (78-98); MONOCYTES # (AUTO) 0.6 X10'3 (0-0.9); MONOCYTES % (AUTO) 11.4 % (2-12); NEUTROPHILS # (AUTO) 3.1 X10'3 (1.8-7.7); NEUTROPHILS % (AUTO) 59.2 % (42-75); PLATELET COUNT 155 X10'3 (140-440); RED BLOOD COUNT 3.37 X10'6 (4.70-6.10); RED CELL DISTRIBUTION WIDTH 12.8 % (11.5-14.5); WHITE BLOOD COUNT 5.3 X10'3 (4.5-11.0)
[2019-08-17 06:27] LABS: ALBUMIN 3.3 G/DL (3.4-5.0); ANION GAP 6 (8-16); BILIRUBIN,TOTAL 0.5 MG/DL (0.1-1.0); BLOOD UREA NITROGEN 31 MG/DL (7-18); BUN/CREATININE RATIO 31.3 (5.4-32.0); CALCIUM 8.6 MG/DL (8.5-10.1); CHLORIDE 100 MMOL/L (99-107); CREATININE 0.99 MG/DL (0.60-1.10); GLUCOSE 105 MG/DL (70-104); PHOSPHORUS 3.1 MG/DL (2.3-4.5); POTASSIUM 3.7 MMOL/L (3.5-5.1); SODIUM 139 MMOL/L (135-145); TOTAL CARBON DIOXIDE 32.6 MMOL/L (24-32); TOTAL PROTEIN 6.8 G/DL (6.4-8.2); eGFR 73 ML/MIN
[2019-08-17 06:28] LABS: ALANINE AMINOTRANSFERASE 9 U/L (12-78); ALBUMIN/GLOBULIN RATIO 0.9 (1.1-1.5); ALKALINE PHOSPHATASE 73 IU/L (46-116); ASPARTATE AMINO TRANSFERASE 20 U/L (10-37)
--- NOTE | 2019-08-17 06:30 | NUR ---
Patient in room PCU 3024. I have received report from LUPIS Riley and had the opportunity to ask questions and assume patient care.
--- NOTE | 2019-08-17 06:34 | NUR ---
Problems reprioritized. Patient report given, questions answered & plan of care reviewed with Yonathan BAUGH.
[2019-08-17] MEDS: aspirin 81mg tab.chew PO SCH (07:32)
[2019-08-17] MEDS: carbidoba-levodopa 25-100mg tablet PO SCH ×3 (07:32→17:36)
[2019-08-17] MEDS: pantoprazole 40mg Tablet.DR PO SCH (07:32)
[2019-08-17] MEDS: carVEDilol 3.125mg tablet PO SCH ×2 (07:32→21:40)
[2019-08-17] MEDS: enoxaparin 40mg/0.4ml syringe SUBCUT SCH (07:32)
[2019-08-17] MEDS: furosemide 40mg/4ml inj IV SCH ×2 (07:32→21:21)
[2019-08-17] MEDS: gabapentin 300mg capsule PO SCH ×3 (07:32→21:23)
[2019-08-17] MEDS: multivitamins, therapeutics tablet PO SCH (08:00)
[2019-08-17] MEDS: K and/or MAG REPLACEMENT MC SCH (08:00)
[2019-08-17] MEDS: ascorbic acid 500mg tablet PO SCH ×2 (08:00→12:27)
[2019-08-17] MEDS: ROPINIRole 1mg tablet PO SCH ×4 (08:00→21:23)
[2019-08-17] MEDS ORDERED: regadenoson 0.4mg/5ml syringe IV ONE (10:35)
[2019-08-17] MEDS: docusate sod 100mg capsule PO SCH ×2 (12:26→21:40)
[2019-08-17] MEDS: levoFLOXACIN 500mg tablet PO SCH (12:26)
[2019-08-17] MEDS ORDERED: heparin 10,000 units/1 ML INJ IV PRN (15:10)
[2019-08-17] MEDS ORDERED: heparin 25,000 UNIT/250ml bag 250 ML IV SCH (15:10)
[2019-08-17] MEDS ORDERED: heparin 10,000 units/1 ML INJ IV ONE (15:10)
[2019-08-17] MEDS: calcium carbonate 500mg tablet PO SCH (15:14)
[2019-08-17 16:09] LABS: PARTIAL THROMBOPLASTIN TIME 30 SECONDS (22-32)
--- NOTE | 2019-08-17 18:00 | NUR ---
Problems reprioritized. Patient report given, questions answered & plan of care reviewed with Janine. LUPIS .
--- NOTE | 2019-08-17 18:44 | NUR ---
Patient in room PCU 3024. I have received report from Anabela BAUGH and had the opportunity to ask questions and assume patient care.
[2019-08-17] MEDS: vitamin D (cholecalciferol) 1,000 unit tablet PO SCH (21:22)
[2019-08-17] MEDS: carbidopa/levodopa 50/200mg CR tablet PO SCH (21:22)
[2019-08-17] MEDS: magnesium oxide 400mg tablet PO SCH (21:22)
[2019-08-17] MEDS: mirtazapine 15mg tablet PO SCH (21:22)
[2019-08-17] MEDS: losartan 50mg tablet PO SCH (21:23)
[2019-08-17] MEDS: atorvastatin 20mg tablet PO SCH (21:23)
[2019-08-17] MEDS: zolpidem 5mg tablet PO SCH (23:25)
[2019-08-18] VITALS (11 sets, daily range): BP systolic 49–135; BP diastolic 27–75
[2019-08-18 05:21] LABS: BASOPHILS % (AUTO) 0.6 % (0-1); EOSINOPHILS % (AUTO) 0.7 % (0-6); HEMATOCRIT 34.4 % (42.0-52.0); HEMOGLOBIN 11.8 g/dl (14.0-17.9); LYMPHOCYTES # (AUTO) 1.4 X10'3 (1.1-4.8); LYMPHOCYTES % (AUTO) 25.4 % (21-51); MEAN CORPUSCULAR HEMOGLOBIN 33.5 PG (27.0-31.0); MEAN CORPUSCULAR HGB CONC 34.3 g/dL (33.0-36.5); MEAN CORPUSCULAR VOLUME 97.6 FL (78-98); MEAN PLATELET VOLUME 8.5 FL (7.4-10.4); MONOCYTES # (AUTO) 0.7 X10'3 (0-0.9); MONOCYTES % (AUTO) 11.8 % (2-12); NEUTROPHILS # (AUTO) 3.4 X10'3 (1.8-7.7); NEUTROPHILS % (AUTO) 61.5 % (42-75); PLATELET COUNT 171 X10'3 (140-440); RED BLOOD COUNT 3.53 X10'6 (4.70-6.10); RED CELL DISTRIBUTION WIDTH 13.1 % (11.5-14.5); WHITE BLOOD COUNT 5.6 X10'3 (4.5-11.0)
[2019-08-18 05:51] LABS: ALANINE AMINOTRANSFERASE 11 U/L (12-78); ALBUMIN 3.5 G/DL (3.4-5.0); ALBUMIN/GLOBULIN RATIO 0.9 (1.1-1.5); ALKALINE PHOSPHATASE 75 IU/L (46-116); ANION GAP 5 (8-16); ASPARTATE AMINO TRANSFERASE 24 U/L (10-37); BILIRUBIN,TOTAL 0.6 MG/DL (0.1-1.0); BLOOD UREA NITROGEN 30 MG/DL (7-18); BUN/CREATININE RATIO 24.4 (5.4-32.0); CHLORIDE 100 MMOL/L (99-107); CREATININE 1.23 MG/DL (0.60-1.10); GLUCOSE 109 MG/DL (70-104); MAGNESIUM 2.1 MG/DL (1.5-2.4); PHOSPHORUS 4.1 MG/DL (2.3-4.5); POTASSIUM 3.9 MMOL/L (3.5-5.1); SODIUM 138 MMOL/L (135-145); TOTAL CARBON DIOXIDE 33.4 MMOL/L (24-32); TOTAL PROTEIN 7.2 G/DL (6.4-8.2); eGFR 57 ML/MIN
--- NOTE | 2019-08-18 06:14 | NUR ---
Problems reprioritized. Patient report given, questions answered & plan of care reviewed with Sandi BAUGH.
--- NOTE | 2019-08-18 07:01 | NUR ---
Patient in room PCU 3024. I have received report from LUPIS Mehta and had the opportunity to ask questions and assume patient care.
[2019-08-18] MEDS: K and/or MAG REPLACEMENT MC SCH (08:00)
[2019-08-18] MEDS: ROPINIRole 1mg tablet PO SCH ×4 (08:02→20:25)
[2019-08-18] MEDS: furosemide 40mg/4ml inj IV SCH ×2 (08:02→20:00)
[2019-08-18] MEDS: pantoprazole 40mg Tablet.DR PO SCH (08:03)
[2019-08-18] MEDS: enoxaparin 40mg/0.4ml syringe SUBCUT SCH (08:03)
[2019-08-18] MEDS: carVEDilol 3.125mg tablet PO SCH ×2 (08:03→20:00)
[2019-08-18] MEDS: gabapentin 300mg capsule PO SCH ×3 (08:03→20:26)
[2019-08-18] MEDS: multivitamins, therapeutics tablet PO SCH (08:03)
[2019-08-18] MEDS: carbidoba-levodopa 25-100mg tablet PO SCH ×3 (08:03→17:29)
[2019-08-18] MEDS: aspirin 81mg tab.chew PO SCH (08:03)
[2019-08-18] MEDS: docusate sod 100mg capsule PO SCH ×2 (08:03→20:25)
[2019-08-18] MEDS: calcium carbonate 500mg tablet PO SCH (08:52)
[2019-08-18] MEDS: levoFLOXACIN 500mg tablet PO SCH (10:36)
--- NOTE | 2019-08-18 16:55 | NUR ---
PAGED DR SINGH PAGER ID: [phone] MESSAGE: CRISTO Jorge [phone] HERE, CAN YOU ORDER PLEASE? PT GETS LOOPY WITH AMARA
--- NOTE | 2019-08-18 18:09 | NUR ---
Problems reprioritized. Patient report given, questions answered & plan of care reviewed with LUPIS GAN.
--- NOTE | 2019-08-18 18:40 | NUR ---
Student Medication Administration: For this medication-pass time frame, all medication were reviewed, dispensed, administered and documented per hospital policy by CYRIL.
--- NOTE | 2019-08-18 18:40 | NUR ---
Student documentation: I have reviewed and agree with all interventions, assessments performed and documented by CYRIL.
[2019-08-18] MEDS: zolpidem 5mg tablet PO SCH (20:02)
[2019-08-18] MEDS ORDERED: ESZOPICLONE 3 MG PO SCH (20:19)
[2019-08-18] MEDS: mirtazapine 15mg tablet PO SCH (20:26)
[2019-08-18] MEDS: atorvastatin 20mg tablet PO SCH (20:26)
[2019-08-18] MEDS: losartan 50mg tablet PO SCH (21:00)
[2019-08-18] MEDS: vitamin D (cholecalciferol) 1,000 unit tablet PO SCH (21:00)
[2019-08-18] MEDS: magnesium oxide 400mg tablet PO SCH (21:00)
[2019-08-18] MEDS: carbidopa/levodopa 50/200mg CR tablet PO SCH (21:04)
--- NOTE | 2019-08-18 22:11 | NUR ---
NOTIFIED BY TECH OF VERY LOW BP. 49/27 ON MACHINE, 51/34 MANUALLY. NOTIFIED
--- NOTE | 2019-08-18 22:17 | NUR ---
MD ORDERS FOR FLUID BOLUSES.
[2019-08-18] MEDS ORDERED: normal saline 1000ml 1,000 ML IV ONE (22:50)
--- NOTE | 2019-08-18 23:19 | NUR ---
92/40 AFTER 1 LITER NORMAL SALINE. AWARE. NO NEW ORDERS AT THIS TIME. WILL CONTINUE TO MONITOR
[2019-08-19 02:50] VITALS: BP 104/44
[2019-08-19 05:10] LABS: BASOPHILS % (AUTO) 0.7 % (0-1); HEMATOCRIT 30.4 % (42.0-52.0); HEMOGLOBIN 10.5 g/dl (14.0-17.9); LYMPHOCYTES # (AUTO) 1.4 X10'3 (1.1-4.8); LYMPHOCYTES % (AUTO) 30.7 % (21-51); MEAN CORPUSCULAR HEMOGLOBIN 33.5 PG (27.0-31.0); MEAN CORPUSCULAR HGB CONC 34.4 g/dL (33.0-36.5); MEAN CORPUSCULAR VOLUME 97.3 FL (78-98); MEAN PLATELET VOLUME 8.5 FL (7.4-10.4); MONOCYTES # (AUTO) 0.5 X10'3 (0-0.9); MONOCYTES % (AUTO) 11.2 % (2-12); NEUTROPHILS # (AUTO) 2.5 X10'3 (1.8-7.7); NEUTROPHILS % (AUTO) 56.4 % (42-75); PLATELET COUNT 155 X10'3 (140-440); RED BLOOD COUNT 3.12 X10'6 (4.70-6.10); RED CELL DISTRIBUTION WIDTH 13.1 % (11.5-14.5); WHITE BLOOD COUNT 4.4 X10'3 (4.5-11.0)
[2019-08-19 05:24] LABS: ALANINE AMINOTRANSFERASE 8 U/L (12-78); ALBUMIN 3.1 G/DL (3.4-5.0); ALBUMIN/GLOBULIN RATIO 0.9 (1.1-1.5); ALKALINE PHOSPHATASE 68 IU/L (46-116); ANION GAP 5 (8-16); ASPARTATE AMINO TRANSFERASE 21 U/L (10-37); BILIRUBIN,TOTAL 0.4 MG/DL (0.1-1.0); BLOOD UREA NITROGEN 35 MG/DL (7-18); BUN/CREATININE RATIO 32.7 (5.4-32.0); CALCIUM 8.3 MG/DL (8.5-10.1); CHLORIDE 100 MMOL/L (99-107); CREATININE 1.07 MG/DL (0.60-1.10); GLUCOSE 121 MG/DL (70-104); MAGNESIUM 2.1 MG/DL (1.5-2.4); PHOSPHORUS 3.6 MG/DL (2.3-4.5); POTASSIUM 3.7 MMOL/L (3.5-5.1); SODIUM 134 MMOL/L (135-145); TOTAL PROTEIN 6.5 G/DL (6.4-8.2); eGFR 67 ML/MIN
--- NOTE | 2019-08-19 06:19 | NUR ---
Problems reprioritized. Patient report given, questions answered & plan of care reviewed with Sherine and Radha RNs.
--- NOTE | 2019-08-19 06:24 | NUR ---
Patient in room PCU 3024. I have received report from Mariela BAUGH and had the opportunity to ask questions and assume patient care.
[2019-08-19] MEDS: carVEDilol 3.125mg tablet PO SCH (06:44)
[2019-08-19 07:00] VITALS: BP 117/54
[2019-08-19] MEDS: multivitamins, therapeutics tablet PO SCH (07:31)
[2019-08-19] MEDS: enoxaparin 40mg/0.4ml syringe SUBCUT SCH (07:31)
[2019-08-19] MEDS: ascorbic acid 500mg tablet PO SCH (07:31)
[2019-08-19] MEDS: docusate sod 100mg capsule PO SCH (07:31)
[2019-08-19] MEDS: calcium carbonate 500mg tablet PO SCH (07:31)
[2019-08-19] MEDS: carbidoba-levodopa 25-100mg tablet PO SCH (07:31)
[2019-08-19] MEDS: aspirin 81mg tab.chew PO SCH (07:32)
[2019-08-19] MEDS: gabapentin 300mg capsule PO SCH (07:32)
[2019-08-19] MEDS: pantoprazole 40mg Tablet.DR PO SCH (07:32)
[2019-08-19] MEDS: ROPINIRole 1mg tablet PO SCH (07:33)
[2019-08-19] MEDS ORDERED: FURO-150 PO (09:16)
[2019-08-19] MEDS ORDERED: LEVO500T89 PO (09:16)
[2019-08-19] MEDS: levoFLOXACIN 500mg tablet PO SCH (10:32)
[2019-08-19] MEDS: furosemide 40mg/4ml inj IV SCH (11:30)
--- NOTE | 2019-08-19 12:05 | NUR ---
Patient stable for discharge per MD order. All discharge information and education reviewed with patient and daughter before signing necessary paperwork. IV removed with catheter in tact, compliance monitor removed, home Rx returned to patient, CPAP and other belongings given to daughter. Patient walked with his walker to the lobby accompanied by PCT. Patient driven home by daughter. Prescription called in to [facility] on [address].
--- NOTE | 2019-08-19 12:24 | NUR ---
[place] documentation: I have reviewed and agree with all interventions, assessments performed and documented by Sherine BAUGH. [place] Medication Administration: For this medication-pass time frame, all medication were reviewed, dispensed, administered and documented per hospital policy by Sherine BAUGH
== END 2019-08-19 11:59 | disposition home health service (06) | DRG 291 ==
LOC: ER 00:39 → CICU 2S 02:30 → PCU 3S 19:25
PROVIDERS: ADMIT Internal Medicine Critical Care Medicine; ATTEND Family Medicine
PROC: 5A09357 Assistance with Respiratory Ventilation, Less than 24 Consecutive Hours, Continuous Positive Airway Pressure (ICD-10-PCS; 2019-08-16)
PROC: 3E0234Z Introduction of Serum, Toxoid and Vaccine into Muscle, Percutaneous Approach (ICD-10-PCS; 2019-08-16)
PROC: 5A09357 Assistance with Respiratory Ventilation, Less than 24 Consecutive Hours, Continuous Positive Airway Pressure (ICD-10-PCS; 2019-08-17)
PROC: 4A02XM4 Measurement of Cardiac Total Activity, External Approach (ICD-10-PCS; 2019-08-17)
PROC: 3E033HZ Introduction of Radioactive Substance into Peripheral Vein, Percutaneous Approach (ICD-10-PCS; 2019-08-17)
PROC: 5A09357 Assistance with Respiratory Ventilation, Less than 24 Consecutive Hours, Continuous Positive Airway Pressure (ICD-10-PCS; principal; 2019-08-18)
DX: I11.0 Hypertensive heart disease with heart failure (principal); N17.0 Acute kidney failure with tubular necrosis; J96.01 Acute respiratory failure with hypoxia; Q78.0 Osteogenesis imperfecta; E87.1 Hypo-osmolality and hyponatremia; I50.43 Acute on chronic combined systolic (congestive) and diastolic (congestive) heart failure; I35.1 Nonrheumatic aortic (valve) insufficiency; B34.9 Viral infection, unspecified; E78.5 Hyperlipidemia, unspecified; G20 Parkinson's disease; G47.33 Obstructive sleep apnea (adult) (pediatric); G89.29 Other chronic pain; I25.10 Atherosclerotic heart disease of native coronary artery without angina pectoris; Z66 Do not resuscitate; Z95.5 Presence of coronary angioplasty implant and graft; Z88.8 Allergy status to other drugs, medicaments and biological substances; Z79.82 Long term (current) use of aspirin; Z23 Encounter for immunization; I25.2 Old myocardial infarction
CPT/HCPCS: 36415; 36600; 71045; 78452; 80053; 82803; 83605; 83735; 83880; 84100; 84145; 84443; 84484; 85018; 85025; 85610; 85730; 87040; 87081; 93005; 93017; 93306; 94660; 94760; 97116; 97161; 97530; 99291; A9500; G0378; J0280; J1650; J1940; J2785; J3490; J7030

== ENCOUNTER 2020-06-22 20:16 | Emergency (ER) | payer MEDICARE, OTHER ==
[~2020-06-22] VITALS: Ht 144.8 cm; Wt 44.5 kg
[~2020-06-22 20:16] MED LIST changes: +ASCO500C15 PO; +ATOR40TA7 PO; +CARB-90 PO; +CARV3.12 PO; +CHOL2000 PO; +ESZO3TAB66 PO; +FURO-150 PO; -FURO40TA4 PO; -GABA-532 PO; +GABA100C PO; +GLUC-131 PO; -METO25TA6 PO; +MIRT7.5T11 PO; +OMEP-50 PO; -ONDA4TAB12 PO; +POTA-82 PO; -ROPI1TAB4 PO; +ROPI1TAB6 PO; -TEMA15CA PO; +VITA100D6 PO
[2020-06-22 20:46] LABS: BASOPHILS # (AUTO) 0.1 X10'3 (0-0.2); BASOPHILS % (AUTO) 1.2 % (0-1); EOSINOPHILS # (AUTO) 0.1 X10'3 (0-0.9); EOSINOPHILS % (AUTO) 1.9 % (0-6); HEMATOCRIT 33.4 % (42.0-52.0); HEMOGLOBIN 11.4 g/dl (14.0-17.9); LYMPHOCYTES # (AUTO) 1.7 X10'3 (1.1-4.8); LYMPHOCYTES % (AUTO) 40.1 % (21-51); MEAN CORPUSCULAR HEMOGLOBIN 32.9 PG (27.0-31.0); MEAN CORPUSCULAR HGB CONC 34.2 g/dL (33.0-36.5); MEAN CORPUSCULAR VOLUME 96.3 FL (78-98); MEAN PLATELET VOLUME 8.9 FL (7.4-10.4); MONOCYTES # (AUTO) 0.4 X10'3 (0-0.9); MONOCYTES % (AUTO) 9.5 % (2-12); NEUTROPHILS % (AUTO) 47.3 % (42-75); PLATELET COUNT 163 X10'3 (140-440); RED BLOOD COUNT 3.46 X10'6 (4.70-6.10); RED CELL DISTRIBUTION WIDTH 13.4 % (11.5-14.5); WHITE BLOOD COUNT 4.2 X10'3 (4.5-11.0)
[2020-06-22 20:56] LABS: ALBUMIN 3.9 G/DL (3.4-5.0); ALBUMIN/GLOBULIN RATIO 1.2 (1.1-1.5); ALKALINE PHOSPHATASE 73 IU/L (46-116); ANION GAP 8 (8-16); ASPARTATE AMINO TRANSFERASE 21 U/L (10-37); BILIRUBIN,TOTAL 0.7 MG/DL (0.1-1.0); BLOOD UREA NITROGEN 24 MG/DL (7-18); BUN/CREATININE RATIO 30.4 (5.4-32.0); CALCIUM 8.6 MG/DL (8.5-10.1); CHLORIDE 100 MMOL/L (99-107); CREATININE 0.79 MG/DL (0.60-1.10); GLUCOSE 104 MG/DL (70-104); SODIUM 138 MMOL/L (135-145); TOTAL PROTEIN 7.1 G/DL (6.4-8.2); eGFR > 90 ML/MIN
[2020-06-22 21:06] LABS: ALANINE AMINOTRANSFERASE < 6 U/L (12-78)
[2020-06-22] MEDS ORDERED: furosemide 10 MG/1 ML 10ml inj IV ONE (21:15)
[2020-06-22] MEDS ORDERED: furosemide 40mg/4ml inj IV ONE (21:20)
[2020-06-22 23:20] VITALS: BP 144/75
== END 2020-06-22 23:27 | disposition home or self-care (01) ==
LOC: ER 20:17
DX: I50.9 Heart failure, unspecified (principal); R07.89 Other chest pain; G20 Parkinson's disease; I25.10 Atherosclerotic heart disease of native coronary artery without angina pectoris; I11.0 Hypertensive heart disease with heart failure; I25.2 Old myocardial infarction; G89.29 Other chronic pain; Z98.61 Coronary angioplasty status; Z98.890 Other specified postprocedural states; Z72.89 Other problems related to lifestyle; Z88.8 Allergy status to other drugs, medicaments and biological substances; Z79.82 Long term (current) use of aspirin; Z79.899 Other long term (current) drug therapy
CPT/HCPCS: 36415; 71045; 80053; 83880; 84484; 85025; 93005; 96374; 99285; J1940

== ENCOUNTER 2020-06-28 07:06 | Emergency (ER) | payer MEDICARE, OTHER ==
[~2020-06-28] VITALS: Ht 142.2 cm; Wt 38.6 kg
[2020-06-28 07:33] LABS: BASOPHILS # (AUTO) 0.1 X10'3 (0-0.2); BASOPHILS % (AUTO) 1.2 % (0-1); EOSINOPHILS % (AUTO) 0.8 % (0-6); HEMATOCRIT 36.8 % (42.0-52.0); HEMOGLOBIN 12.3 g/dl (14.0-17.9); LYMPHOCYTES # (AUTO) 1.5 X10'3 (1.1-4.8); LYMPHOCYTES % (AUTO) 32.7 % (21-51); MEAN CORPUSCULAR HEMOGLOBIN 32.2 PG (27.0-31.0); MEAN CORPUSCULAR HGB CONC 33.3 g/dL (33.0-36.5); MEAN CORPUSCULAR VOLUME 96.7 FL (78-98); MEAN PLATELET VOLUME 8.7 FL (7.4-10.4); MONOCYTES # (AUTO) 0.4 X10'3 (0-0.9); MONOCYTES % (AUTO) 9.3 % (2-12); NEUTROPHILS # (AUTO) 2.5 X10'3 (1.8-7.7); PLATELET COUNT 168 X10'3 (140-440); RED CELL DISTRIBUTION WIDTH 13.3 % (11.5-14.5); WHITE BLOOD COUNT 4.4 X10'3 (4.5-11.0)
[2020-06-28 07:42] LABS: ALANINE AMINOTRANSFERASE 7 U/L (12-78); ALBUMIN 4.4 G/DL (3.4-5.0); ALBUMIN/GLOBULIN RATIO 1.3 (1.1-1.5); ALKALINE PHOSPHATASE 78 IU/L (46-116); ANION GAP 7 (8-16); ASPARTATE AMINO TRANSFERASE 22 U/L (10-37); BILIRUBIN,TOTAL 1.3 MG/DL (0.1-1.0); BLOOD UREA NITROGEN 33 MG/DL (7-18); BUN/CREATININE RATIO 32.7 (5.4-32.0); CALCIUM 9.3 MG/DL (8.5-10.1); CHLORIDE 99 MMOL/L (99-107); CREATININE 1.01 MG/DL (0.60-1.10); GLUCOSE 95 MG/DL (70-104); POTASSIUM 3.7 MMOL/L (3.5-5.1); SODIUM 138 MMOL/L (135-145); TOTAL CARBON DIOXIDE 32.1 MMOL/L (24-32); TOTAL PROTEIN 7.7 G/DL (6.4-8.2); eGFR 71 ML/MIN
[2020-06-28] MEDS ORDERED: furosemide 10 MG/1 ML 10ml inj IV ONE (08:25)
[2020-06-28] MEDS ORDERED: ibuprofen tablet 400 MG TABLET PO ONE (11:05)
[2020-06-28] MEDS ORDERED: HYDROcodone/acetaminophen 5mg/325mg tablet PO ONE (11:05)
--- NOTE | 2020-06-28 12:12 | NUR ---
TC TO [facility] . STATES HE WILL BE PROVIDING TRANSPORTATION BUT WILL NOT BE ABLE TO GET HERE FOR ONE HOUR. PATIENT READY FOR DC.
[2020-06-28 12:13] VITALS: BP 150/64
== END 2020-06-28 12:16 | disposition home or self-care (01) ==
LOC: ER 07:06
DX: R07.89 Other chest pain (principal); R06.02 Shortness of breath; R19.7 Diarrhea, unspecified; G20 Parkinson's disease; I25.10 Atherosclerotic heart disease of native coronary artery without angina pectoris; I50.9 Heart failure, unspecified; I11.0 Hypertensive heart disease with heart failure; I25.2 Old myocardial infarction; G89.29 Other chronic pain; Z98.890 Other specified postprocedural states; Z98.61 Coronary angioplasty status; Z72.89 Other problems related to lifestyle; Z88.8 Allergy status to other drugs, medicaments and biological substances; Z79.82 Long term (current) use of aspirin; Z79.899 Other long term (current) drug therapy
CPT/HCPCS: 36415; 71045; 80053; 83880; 84484; 85025; 93005; 96374; 99285; J1940

== ENCOUNTER 2020-10-17 00:41 | Emergency (ER) | payer MEDICARE, OTHER ==
[~2020-10-17] VITALS: Ht 137.2 cm; Wt 41.8 kg
[~2020-10-17 00:41] MED LIST changes: -ASCO500C15 PO; +ASCO500C18 PO
--- NOTE | 2020-10-17 02:28 | NUR ---
right shoulder pain MRI completed Monday MD imaging 10/16/20 for chronic righ shoulder pain.
--- NOTE | 2020-10-17 04:26 | NUR ---
Dr Juarez here viewed xray ordered right shoulder 2 view
--- NOTE | 2020-10-17 04:26 | NUR ---
radiology at bedside for x ray
[2020-10-17] MEDS ORDERED: normal saline 1000ML IV soln IVB ONE (05:35)
[2020-10-17] MEDS ORDERED: NITR100C6 PO ×2 (05:38→05:43)
[2020-10-17 06:54] LABS: BASOPHILS % (AUTO) 0.7 % (0-1); EOSINOPHILS # (AUTO) 0.1 X10'3 (0-0.9); EOSINOPHILS % (AUTO) 1.7 % (0-6); HEMOGLOBIN 10.1 g/dl (14.0-17.9); LYMPHOCYTES # (AUTO) 1.6 X10'3 (1.1-4.8); LYMPHOCYTES % (AUTO) 34.3 % (21-51); MEAN CORPUSCULAR HEMOGLOBIN 34.6 PG (27.0-31.0); MEAN CORPUSCULAR HGB CONC 34.8 g/dL (33.0-36.5); MEAN CORPUSCULAR VOLUME 99.5 FL (78-98); MEAN PLATELET VOLUME 8.6 FL (7.4-10.4); MONOCYTES # (AUTO) 0.4 X10'3 (0-0.9); MONOCYTES % (AUTO) 7.6 % (2-12); NEUTROPHILS # (AUTO) 2.6 X10'3 (1.8-7.7); NEUTROPHILS % (AUTO) 55.7 % (42-75); PLATELET COUNT 225 X10'3 (140-440); RED BLOOD COUNT 2.92 X10'6 (4.70-6.10); RED CELL DISTRIBUTION WIDTH 13.5 % (11.5-14.5); WHITE BLOOD COUNT 4.6 X10'3 (4.5-11.0)
[2020-10-17 07:10] LABS: ALANINE AMINOTRANSFERASE 13 U/L (12-78); ALBUMIN 3.1 G/DL (3.4-5.0); ALBUMIN/GLOBULIN RATIO 0.9 (1.1-1.5); ALKALINE PHOSPHATASE 73 IU/L (46-116); ANION GAP 9 (8-16); ASPARTATE AMINO TRANSFERASE 30 U/L (10-37); BILIRUBIN,TOTAL 0.3 MG/DL (0.1-1.0); BLOOD UREA NITROGEN 40 MG/DL (7-18); CHLORIDE 102 MMOL/L (99-107); CREATININE 0.93 MG/DL (0.60-1.10); GLUCOSE 100 MG/DL (70-104); POTASSIUM 4.2 MMOL/L (3.5-5.1); SODIUM 140 MMOL/L (135-145); TOTAL CARBON DIOXIDE 29.4 MMOL/L (24-32); TOTAL PROTEIN 6.6 G/DL (6.4-8.2); eGFR 78 ML/MIN
[2020-10-17] MEDS ORDERED: iohexol 300mg/ml 100ml inj. ONE (07:22)
[2020-10-17] MEDS ORDERED: ACET-2119 PO (08:23)
[2020-10-17 10:02] VITALS: BP 106/60
== END 2020-10-17 10:07 | disposition home or self-care (01) ==
LOC: ER 00:41
DX: S22.31XA Fracture of one rib, right side, initial encounter for closed fracture (principal); M25.511 Pain in right shoulder; G20 Parkinson's disease; I25.10 Atherosclerotic heart disease of native coronary artery without angina pectoris; I11.0 Hypertensive heart disease with heart failure; I50.9 Heart failure, unspecified; G89.29 Other chronic pain; M19.90 Unspecified osteoarthritis, unspecified site; Z98.61 Coronary angioplasty status; Z98.890 Other specified postprocedural states; Z72.89 Other problems related to lifestyle; Z88.8 Allergy status to other drugs, medicaments and biological substances; Z79.82 Long term (current) use of aspirin; Z79.899 Other long term (current) drug therapy; X58.XXXA Exposure to other specified factors, initial encounter; Y93.89 Activity, other specified; Y92.89 Other specified places as the place of occurrence of the external cause; Y99.8 Other external cause status
CPT/HCPCS: 36415; 71045; 71260; 73030; 74177; 80053; 84484; 85025; 93005; 99285; J7030; Q9967

== ENCOUNTER 2021-07-21 07:04 | Emergency (ER) | payer MEDICARE, OTHER ==
[~2021-07-21] VITALS: Ht 137.2 cm; Wt 42.7 kg
[~2021-07-21 07:04] MED LIST changes: +CARB-296 PO; -CARB-87 PO; +NITR100C6 PO
[2021-07-21 08:12] LABS: BASOPHILS % (AUTO) 1.1 % (0-1); EOSINOPHILS # (AUTO) 0.1 X10'3 (0-0.9); EOSINOPHILS % (AUTO) 2.1 % (0-6); HEMOGLOBIN 9.2 g/dl (14.0-17.9); LYMPHOCYTES % (AUTO) 26.7 % (21-51); MEAN CORPUSCULAR HEMOGLOBIN 33.6 PG (27.0-31.0); MEAN CORPUSCULAR HGB CONC 34.1 g/dL (33.0-36.5); MEAN CORPUSCULAR VOLUME 98.5 FL (78-98); MEAN PLATELET VOLUME 7.8 FL (7.4-10.4); MONOCYTES # (AUTO) 0.4 X10'3 (0-0.9); MONOCYTES % (AUTO) 10.1 % (2-12); NEUTROPHILS # (AUTO) 2.3 X10'3 (1.8-7.7); PLATELET COUNT 301 X10'3 (140-440); RED BLOOD COUNT 2.74 X10'6 (4.70-6.10); WHITE BLOOD COUNT 3.8 X10'3 (4.5-11.0)
[2021-07-21 08:28] LABS: ALANINE AMINOTRANSFERASE 8 U/L (12-78); ALBUMIN 3.1 G/DL (3.4-5.0); ALBUMIN/GLOBULIN RATIO 0.9 (1.1-1.5); ALKALINE PHOSPHATASE 77 IU/L (46-116); ANION GAP 7 (8-16); ASPARTATE AMINO TRANSFERASE 15 U/L (10-37); BILIRUBIN,TOTAL 0.6 MG/DL (0.1-1.0); BLOOD UREA NITROGEN 30 MG/DL (7-18); BUN/CREATININE RATIO 31.3 (5.4-32.0); CALCIUM 8.5 MG/DL (8.5-10.1); CHLORIDE 100 MMOL/L (99-107); CREATININE 0.96 MG/DL (0.60-1.10); GLUCOSE 100 MG/DL (70-104); POTASSIUM 4.6 MMOL/L (3.5-5.1); SODIUM 134 MMOL/L (135-145); TOTAL CARBON DIOXIDE 27.1 MMOL/L (24-32); TOTAL PROTEIN 6.6 G/DL (6.4-8.2); eGFR 75 ML/MIN
[2021-07-21] MEDS ORDERED: OXYGEN NASALCANN (11:42)
[2021-07-21 11:49] VITALS: BP 176/85
== END 2021-07-21 11:59 | disposition home or self-care (01) ==
LOC: ER 07:05
DX: R07.9 Chest pain, unspecified (principal); I50.9 Heart failure, unspecified; Z88.8 Allergy status to other drugs, medicaments and biological substances; Z79.899 Other long term (current) drug therapy; Z20.822 Contact with and (suspected) exposure to COVID-19
CPT/HCPCS: 36415; 71045; 80053; 83880; 84484; 85025; 87635; 93005; 99285; C9803

== ENCOUNTER 2021-07-24 21:06 | Emergency (ER) | payer MEDICARE, OTHER ==
[~2021-07-24] VITALS: Ht 137.2 cm; Wt 42.7 kg
[~2021-07-24 21:06] MED LIST changes: +OXYGEN NASALCANN
[2021-07-24 22:29] VITALS: BP 104/47
--- NOTE | 2021-07-24 22:51 | NUR ---
PER DR WILLOUGHBY, PLACED PT IN SIDE LAYING POSITION AND PLACED CANE SUGAR ON PROLAPSED RECTUM.
== END 2021-07-24 23:43 | disposition home or self-care (01) ==
LOC: ER 21:07
DX: K62.3 Rectal prolapse (principal); G20 Parkinson's disease; I25.10 Atherosclerotic heart disease of native coronary artery without angina pectoris; I11.0 Hypertensive heart disease with heart failure; I50.9 Heart failure, unspecified; I25.2 Old myocardial infarction; G89.29 Other chronic pain; Z87.81 Personal history of (healed) traumatic fracture; Z72.89 Other problems related to lifestyle; Z95.5 Presence of coronary angioplasty implant and graft; Z98.890 Other specified postprocedural states; Z79.899 Other long term (current) drug therapy; Z88.8 Allergy status to other drugs, medicaments and biological substances
CPT/HCPCS: 99283; 99284